=== PATIENT | female | born 1950 | race Caucasian/White ===

== ENCOUNTER 2021-12-19 08:56 | Outpatient (CLI) | payer OTHER | END 2021-12-19 09:02 | disposition home or self-care (01) | LOC: RX STUDY 08:56 | PROVIDERS: ATTEND Internal Medicine Gastroenterology | DX: K59.00 Constipation, unspecified (principal); K63.5 Polyp of colon; K56.600 Partial intestinal obstruction, unspecified as to cause; C18.9 Malignant neoplasm of colon, unspecified; K57.30 Diverticulosis of large intestine without perforation or abscess without bleeding; K56.690 Other partial intestinal obstruction ==